=== PATIENT | male | born 1945 | race Caucasian/White ===

== ENCOUNTER → 2024-02-04 15:44 | Outpatient (REF) | payer OTHER, SELFPAY | LOC: HWRAD 15:44 | PROVIDERS: ATTENDING PHYSICIAN Nurse Practitioner Family | DX: S42.002K Fracture of unspecified part of left clavicle, subsequent encounter for fracture with nonunion (principal); S22.32XK Fracture of one rib, left side, subsequent encounter for fracture with nonunion; J93.9 Pneumothorax, unspecified | CPT/HCPCS: 71046 ==

== ENCOUNTER 2024-03-01 11:05 | Emergency (ER) | payer BC, MEDICARE, SELFPAY ==
[2024-03-01 11:13] VITALS: BP 120/68
[2024-03-01 11:35] VITALS: BMI 23.7
[2024-03-01 11:41] VITALS: BP 119/62
[2024-03-01 12:00] VITALS: BP 99/88
[2024-03-01 12:00] LABS: % Basophils 0.5 % (0-2); % Eosinophils 0.6 % (0-6); % Immature Granulocytes 0.5 % (0-0.5); % Lymphocytes 8.1 % (20.5-51.1); % Monocytes 7.1 % (1.7-9.3); % Neutrophils 83.2 % (42.2-75.2); Absolute Lymphocytes 0.5 10^3/uL (1.2-3.4); Absolute Monocytes 0.5 10^3/uL (0.1-0.6); Absolute Neutrophils 5.3 10^3/uL (1.4-6.5); Hematocrit 41.2 % (39.0-52.0); Hemoglobin 14.1 g/dL (13.0-18.0); Mean Corp Hgb Conc. 34.2 g/dL (33.0-37.0); Mean Corpuscular Hgb 29.9 pg (27.0-31.0); Mean Corpuscular Volume 87.3 fL (80.0-94.0); Mean Platelet Volume 9.9 fL (7.4-10.4); Nucleated Red Blood Cells % 0 % (-); Platelet Count 156 10^3/uL (130-400); Red Blood Cell Count 4.72 10^6/uL (4.70-6.10); Red Cell Dist. Width 13.8 % (11.5-14.5); White Blood Cell Count 6.3 10^3/uL (4.8-10.8)
[2024-03-01 12:15] LABS: ALT (SGPT) 20 U/L (0-50); AST (SGOT) 23 U/L (17-59); Albumin 4.2 g/dl (3.5-5.0); Alkaline Phosphatase 89 U/L (38-126); Blood Urea Nitrogen 20 mg/dl (9-20); Calcium 9.5 mg/dl (8.4-10.2); Carbon Dioxide 30 mmol/L (22-30); Chloride 102 mmol/L (98-107); Estimated Creatinine Clearance 48 ml/min; Glucose 181 mg/dl (70-99); Potassium 4.6 mmol/L (3.5-5.1); Sodium 139 mmol/L (135-145); Total Bilirubin 0.8 mg/dl (0.2-1.3); Total Protein 6.5 g/dl (6.3-8.2); eGFR > 60.00
[2024-03-01 12:24] LABS: Troponin I < 0.012 ng/ml
[2024-03-01 13:26] VITALS: BP 96/61
[2024-03-01 14:00] VITALS: BP 98/71
--- NOTE | 2024-03-01 14:25 | EDRN ---
Randy Suero PA in room speaking w/ pt and spouse at this time.
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
[2024-03-01 15:00] VITALS: BP 101/82
--- NOTE | 2024-03-01 15:20 | EDRN ---
Pt OOB and ambulated to BR and back w/ cane at this time.
== END 2024-03-01 15:25 | disposition home or self-care (01) ==
LOC: EMR 11:05
PROVIDERS: Physician Assistant; EMERGENCY PHYSICIAN Emergency Medicine; FAMILY PHYSICIAN Nurse Practitioner Family
DX: R42 Dizziness and giddiness (principal); R61 Generalized hyperhidrosis; E78.00 Pure hypercholesterolemia, unspecified
CPT/HCPCS: 99283; 71046; 80053; 84484; 85025; 93005

== ENCOUNTER → 2024-03-18 06:39 | Day surgery (SDC) | payer MEDICARE, BC, SELFPAY ==
[2024-03-18 09:35] LABS: Glucose - Point of Care 92 mg/dl (70-99)
== END ==
LOC: GI 06:39
PROVIDERS: ATTENDING PHYSICIAN Internal Medicine Gastroenterology
DX: K44.9 Diaphragmatic hernia without obstruction or gangrene (principal); R11.2 Nausea with vomiting, unspecified; K31.9 Disease of stomach and duodenum, unspecified
CPT/HCPCS: 43239; 88305; 82962; 88341; 88342; 88365

== ENCOUNTER 2024-04-29 13:40 | Outpatient (RCR) | payer MEDICARE, BC, SELFPAY | END 2024-04-29 23:59 | disposition home or self-care (01) | LOC: ROT 13:40 | PROVIDERS: ATTENDING PHYSICIAN Nurse Practitioner Adult Health; FAMILY PHYSICIAN Nurse Practitioner Family | DX: R41.3 Other amnesia (principal); Z73.6 Limitation of activities due to disability; R41.89 Other symptoms and signs involving cognitive functions and awareness; R41.840 Attention and concentration deficit | CPT/HCPCS: 96125; 97129; 97130; 97167; 97530; 97535 ==

== ENCOUNTER 2024-06-02 12:53 | Outpatient (RCR) | payer MEDICARE, BC, SELFPAY | END 2024-06-02 23:59 | disposition home or self-care (01) | LOC: ROT 12:53 | PROVIDERS: ATTENDING PHYSICIAN Nurse Practitioner Adult Health; FAMILY PHYSICIAN Nurse Practitioner Family | DX: R41.3 Other amnesia (principal); Z73.6 Limitation of activities due to disability | CPT/HCPCS: 97129; 97130; 97530; 97535; 97550 ==

== ENCOUNTER 2024-06-21 15:10 | Outpatient (RCR) | payer MEDICARE, BC, SELFPAY | END 2024-06-21 23:59 | disposition home or self-care (01) | LOC: ROT 15:10 | PROVIDERS: ATTENDING PHYSICIAN Nurse Practitioner Adult Health; FAMILY PHYSICIAN Nurse Practitioner Family | DX: R41.3 Other amnesia (principal); Z73.6 Limitation of activities due to disability | CPT/HCPCS: 97129; 97130; 97530; 97535 ==

== ENCOUNTER 2024-08-05 05:55 | Day surgery (SDC) | payer MEDICARE, BC, SELFPAY ==
[2024-08-05] VITALS (7 sets, daily range): BP systolic 125–170; BP diastolic 63–95; BMI 22.8
[2024-08-05 06:23] LABS: Glucose - Point of Care 112 mg/dl (70-99)
[2024-08-05] MEDS: TYLENOL 1000 MG PO (06:30)
[2024-08-05] MEDS: NORMOSOL-R/PLASMALYTE-A 1000 IV (06:30)
--- NOTE | 2024-08-05 07:02 | W.SUR.PREOP ---
Pre-Operative Surgical Note
-
I have examined this patient prior to the performance of the scheduled procedure.
The patient's condition is unchanged from the time of the current History and
Physical and the patient is able to undergo the scheduled procedure.
--- NOTE | 2024-08-05 07:02 | HP.FOC2 ---
Focused History & Physical
Chief Complaint
HPI:
Chief Complaint: Right inguinal hernia
HPI / Indication for Planned Procedure:
Open right inguinal hernia repair with mesh
Relevant Past Medical History: Negative
Relevant Social History: Negative
Relevant Family History: Negative
Relevant Past Surgical History: Negative
Review of Systems
Review of Pertinent Systems: All Systems Negative
Medication
See Medication form for detailed medications: Yes
Medication List (including Herbals & OTC):
atorvastatin 10 mg tablet (Lipitor) 10 mg PO DAILY 10/14/21
mirabegron 25 mg tablet,extended release 24 hr (Myrbetriq) 25 mg PO DAILY 10/14/21
sitagliptin phosphate 100 mg tablet (Januvia) 100 mg PO DAILY 10/14/21
tamsulosin 0.4 mg capsule (Flomax) 0.4 mg PO HS 10/14/21
donepezil 23 mg tablet 23 mg PO HS 07/22/24
gejculhq-ozl-cwhvb 150 mcg-vit K1 30 mcg-lycop 300 mcg-lutein tablet (Centrum Minis Men 50 Plus) 1 tab PO DAILY 07/22/24
famotidine 20 mg tablet (Pepcid) 20 mg PO HS 08/05/24
Medications Reviewed: Yes
Allergies and Reactions
Patient has Allergies: Yes
Noted Allergies and Reactions:
Allergy/AdvReac Type Severity Reaction Status Date / Time
tramadol Allergy VOMITING, Verified 08/05/24 06:26
SWEATING
Pertinent Physical Exam
All Other Systems: Negative
Head/Neck: Normal
Diagnosis / Assessment
Right inguinal hernia
Plan / Procedure
Open right inguinal hernia repair with mesh
Anesthesia/Sedation to be done by Anesthesia Provider: Yes
--- NOTE | 2024-08-05 08:24 | W.IMMPOSTOP ---
Surgical Immed Post Op Note
-
Primary Surgeon: Nabor Lovell MD
Assisting Surgeon: None
Pre-op Diagnosis: Right inguinal hernia
Post-op Diagnosis: Same
Procedure Performed:
1. Open right inguinal hernia repair with mesh
2. Right inguinal neurectomy
Anesthesia Type: General
Specimen / Cultures:
1. Cord lipoma
2. Right inguinal nerve (trifurcated ilioinguinal nerve)
Estimated Blood Loss: 3 cc
Complications: None
Operative Findings: Indirect inguinal hernia with a fairly large cord lipoma that was resected. Hernia sac opened and confirmed to have no contents. High ligation performed. No direct or femoral component palpated. Floor reinforced with a Bard
soft 7 x 15 centimeter uncoated polypropylene mesh cut to size.
--- NOTE | 2024-08-05 08:27 | OR.RPT ---
Operative Report
Operative Report
Patient Name: Mukund Powers
: 1945
Date of Operation: 08/05/2024
Preoperative Diagnosis: Reducible Inguinal hernia, right
Postoperative Diagnosis: Same
Procedure Performed:
1. Open right inguinal hernia repair with mesh
2. Right inguinal neurectomy
Surgeon(s):
Dr. Lovell
Parking Lot Signaler(s):
DEBBIE Wiley
Anesthesia Type: MAC
Estimated Blood Loss: 3 cc
Urine Output: None
Drains/Lines/Implants: 3 x 6 inch Bard soft mesh cut to size
Specimen / Cultures:
1. Cord lipoma
2. Right inguinal nerve (trifurcated ilioinguinal nerve)
Indication for surgery: The patient has a history of groin pain and some asymmetry noted on exam and was found to have a right inguinal Hernia. Following review of therapeutic options they has elected to undergo an open repair
Operative Findings: Indirect inguinal hernia with a fairly large cord lipoma that was resected. Hernia sac opened and confirmed to have no contents. High ligation performed. No direct or femoral component palpated. Floor reinforced with a Bard
soft 7 x 15 centimeter uncoated polypropylene mesh cut to size.
Details of the operation:
After induction of anesthesia, the patient was clipped, prepped and draped in the supine position. A team timeout was performed confirming administration of DVT prophylaxis, IV antibiotics and SCDs. The ASIS and pubic tubercle were marked and an
incision was chosen along the course of a skin line. The skin was anesthestized with Lidocaine. An incision was made through the skin line and dissection carried down through subcutaneous tissue and Courtney's fascia. The superficial epigastric vein
was identified and ligated. A Small Antwon wound retractor was used to provide exposure. The external oblique fibers were then divided in the direction of travel. The ilioinguinal nerve was identified and preserved. Dissection was carried down to
the floor, which revealed the following:
At the site of the indirect (internal) ring, there was a moderate size protrusion of preperitoneal fat, the hernia sac was identified, dissected and reduced off the cord structures. After confirming no intra-abdominal contents, a high ligation was
performed.
A cord lipoma was also identified and resected.
The direct space, floor of the canal revealed no weakness. No femoral weakness could be palpated through an opening in the indirect sac.
The floor of the canal was then reconstructed by placing a 7 x 15 cm Bard soft uncoated polypropylene mesh trimmed to size and secured it in place with interrupted 0-PDS sutures medially at the pubic tubercle, inferiorly along the inguinal ligament,
laterally/superiorly in the conjoint tendon. A slit was made in the mesh just wide enough to accommodate the cord this was also reapproximated with the PDS suture. Care was taken not to injure or entrap any nerves. The external oblique fibers were
then closed using a running 2-0 Vicryl suture. Courtney's fascia was then closed with interrupted 3-0 Vicryl suture. The skin was closed in layers with interrupted 3-0 vicryl deep dermals followed by a running subcuticular 4-0 Monocryl followed by
dermabond. The patient returned to the Recovery Room in stable condition. Sponge and instrument counts were correct. No specimens sent to Pathology.
I was the attending physician and performed the procedure with assistance of the PA above. The assistance of DEBBIE Wiley was required due to the complexity of the procedure. During the procedure Diaen assisted with retraction, resection, and
closure of the wound. I was present for all portions of the case, excluding skin closure.
Nabor Lovell MD
[2024-08-05 08:35] LABS: Glucose - Point of Care 137 mg/dl (70-99)
== END 2024-08-05 09:55 | disposition home or self-care (01) ==
LOC: SDS 05:55
PROVIDERS: ATTENDING PHYSICIAN Surgery; FAMILY PHYSICIAN Nurse Practitioner Family
DX: K40.90 Unilateral inguinal hernia, without obstruction or gangrene, not specified as recurrent (principal)
CPT/HCPCS: 49505; 88304; 88305; 82962; C1894

== ENCOUNTER → 2024-11-26 15:40 | Outpatient (REF) | payer MEDICARE, OTHER, SELFPAY | LOC: HWRCS 15:40 | PROVIDERS: ATTENDING PHYSICIAN Internal Medicine Cardiovascular Disease; FAMILY PHYSICIAN Nurse Practitioner Family | DX: R42 Dizziness and giddiness (principal); R07.89 Other chest pain; V89.2XXA Person injured in unspecified motor-vehicle accident, traffic, initial encounter | CPT/HCPCS: 93306 ==

== ENCOUNTER → 2025-01-14 11:02 | Outpatient (REF) | payer MEDICARE, OTHER, SELFPAY | LOC: PAVMRI 11:02 | PROVIDERS: ATTENDING PHYSICIAN Specialist; FAMILY PHYSICIAN Nurse Practitioner Family | DX: M54.50 Low back pain, unspecified (principal); M25.551 Pain in right hip | CPT/HCPCS: 72148; 73721 ==

== ENCOUNTER → 2025-03-18 08:12 | Outpatient (REF) | payer MEDICARE, OTHER, SELFPAY | LOC: HWRAD 08:12 | PROVIDERS: ATTENDING PHYSICIAN Nurse Practitioner Family | DX: I71.40 Abdominal aortic aneurysm, without rupture, unspecified (principal) | CPT/HCPCS: 76770 ==

== ENCOUNTER 2025-04-11 19:25 | Observation (INO) | payer MEDICARE, OTHER, SELFPAY ==
[2025-04-11] VITALS (10 sets, daily range): BP systolic 134–190; BP diastolic 71–89; BMI 25.8
--- NOTE | 2025-04-11 11:15 | ED.MUSCINJ ---
HPI-Injury
General
Chief Complaint: Fall
Source: patient
Exam Limitations: none
Time Seen by Provider: 04/11/25 11:03
History of Present Illness-Injury
Initial Injury comments:
80-year-old male not anticoagulated presents with who he lives with at home after a fall. She notes he has been falling frequently over the past week. He gets episodes of dizziness and sweatiness. Today he fell backwards while putting his
pants on hitting the upper back and neck on the edge of a nightstand. No loss of conscious. He notes diffuse back pain and headache as well as neck pain. also notes he has been complaining of abdominal discomfort. He has been moving his
bowels and urinating normally. No hematuria since the fall. No recent fevers. No other complaints.
Past History
Past History
ED Past Medical History: Cancer (Prostate) and Hypercholesterolemia
Social History
Tobacco: Non-smoker
Phy Exam
Physical Exam
Physical Exam:
General: Well-appearing male no acute distress
HEENT: NC/AT
Heart: Regular but bradycardic
Lungs: Clear no wheeze
Musculoskeletal exam: Diffuse tenderness about the lumbar thoracic and cervical spine. No obvious deformities. Good range of motion all extremities
Abdomen is soft no guarding or rebound
Neurologic exam: Alert oriented good strength and sensation to the upper and lower extremities
Skin is warm no rash
Injury Course
Orders/Labs/Results
Orders:
Orders
04/11/25 10:26
Electrocardiogram (*1) Urgent
Reason for Study: Bradycardia / Tachycardia
EKG- Treatment ONCE
04/11/25 10:36
Complete Blood Count/With Diff Urgent
Comprehensive Metabolic Panel Urgent
Lipase Urgent
04/11/25 11:11
CT Cervical Spine W/o Iv Contr Urgent
Comment:
Reason For Exam: fall
CT Head W/o Iv Contrast Urgent
Comment:
Reason For Exam: fall
CR Lumbar Spine 2 Or 3 Views Urgent
Comment:
Reason For Exam: fall
CR Thoracic Spine 3 Views Urgent
Comment:
Reason For Exam: fall
04/11/25 13:47
CT Abd/pelvis W Iv Cont Urgent
Comment:
Reason For Exam: abdominal pain
04/11/25 13:54
Urinalysis Reflex To Culture Urgent
Date Specimen was Collected: 04/11/25
Time Specimen was Collected: 11:24
Urine Microscopic Reflex Cult Urgent
04/11/25 18:10
NSS 1000mL Bolus over 1 hr 0.9% Sodium Chloride 1000 ml [Nss] 1,000 ml IV BOLUS
Abnormal Lab Results
04/11/25 04/11/25
10:36 13:54
RBC 4.67 L 10^6/uL
(4.70-6.10)
MPV 10.5 H fL
(7.4-10.4)
Absolute Lymphs (auto) 1.0 L 10^3/uL
(1.2-3.4)
Lymphocytes % 18.7 L %
(20.5-51.1)
Monocytes % 10.8 H %
(1.7-9.3)
Carbon Dioxide 31 H mmol/L
(22-30)
BUN 23 H mg/dl
(9-20)
Glucose 111 H mg/dl
(70-99)
Lipase 835 H U/L
(23-300)
Urine Bacteria (Reflex) Few A
(Negative)
Urine Albumin (Reflex) 1+ A
(Neg - Trace)
04/11/25 10:36
04/11/25 10:36
MDM/Problems Addressed
Differential Diagnosis Includes:
Patient with fall. He has had falls in the past week. describes a dizziness. Patient is slightly a poor historian. CT of head and cervical spine pending will x-ray the thoracic and lumbar spine. Urinalysis and labs pending otherwise
*Pulse Oximetry
SaO2: 97
Oxygen Mode of Delivery: Room air
Patient hypoxic: no
*Critical Care Note
Total Time (30-74mins, 75-104mins- exclusive of procedures): Not Applicable
Update Note
Update Note:
EKG shows sinus bradycardia with a rate of 45. This is not new'
Lipase is elevated. CT of the abdomen was performed as well which is negative for acute finding. Patient here with frequent falls and weakness. Possible pancreatitis. He does describe abdominal pain is tender on exam. Fluids ordered. Will
admit to hospital
ED Attending Note
-
Portions of this chart may have been created with voice recognition software.� Occasional wrong word or��sound alike� substitutions may have occurred due to the inherent limitations of voice recognition software.
Discharge Plan
Departure
Patient Disposition: Admit
Date of Disposition: 04/11/25
Time of Disposition: 18:11
Presentation/result/management discussed w/ accepting MD/DO: Hospitalist
Discharge Problem:
Falls, Abdominal pain
Prescriptions:
No Action
atorvastatin [Lipitor] 10 MG tablet
10 mg PO DAILY
tamsulosin [Flomax] 0.4 MG capsule
0.4 mg PO HS
Januvia 100 MG tablet
100 mg PO DAILY
mirabegron [Myrbetriq] 25 MG tablet extended release 24 hr
25 mg PO DAILY
donepezil 23 mg Tablet
23 mg PO HS
Centrum Minis Men 50 Plus [id number] mcg Tablet
1 tab PO DAILY
famotidine [Pepcid] 20 mg Tablet
20 mg PO HS
acetaminophen 325 mg tablet
650 mg PO Q6HPRN PRN (Reason: mild pain) Qty: 14 0RF
ibuprofen 600 mg tablet
600 mg PO Q6H PRN (Reason: pain) Qty: 14 0RF
Referrals:
Minor Lu CRNP [Family Provider, Family Practice]
Interventions
Interventions:
*Risk Screen - Suicide Last Done: 04/11/25 10:21
*General Assessment Last Done: 04/11/25 10:21
*Neglect/Abuse Screening Last Done: 04/11/25 10:21
*ED- Fall Risk Assessment Last Done: 04/11/25 11:16
*ED COVID-19 Vaccine History Last Done: 04/11/25 11:16
ED-Musculoskeletal Assessment Last Done: 04/11/25 10:33
ED- Neurological Assessment Last Done: 04/11/25 10:33
ED-Skin Assessment Last Done: 04/11/25 10:33
Discharge Date and Time
Print Language: TAIWANESE
[2025-04-11 11:39] LABS: Hematocrit 41.9 % (39.0-52.0); Hemoglobin 14.3 g/dL (13.0-18.0); Mean Corp Hgb Conc. 34.1 g/dL (33.0-37.0); Mean Corpuscular Volume 89.7 fL (80.0-94.0); Nucleated Red Blood Cells % 0 % (-); Platelet Count 145 10^3/uL (130-400); Red Cell Dist. Width 13.8 % (11.5-14.5)
[2025-04-11 11:44] LABS: ALT (SGPT) 25 U/L (0-50); AST (SGOT) 23 U/L (17-59); Albumin 4.4 g/dl (3.5-5.0); Alkaline Phosphatase 72 U/L (38-126); Blood Urea Nitrogen 23 mg/dl (9-20); Calcium 9.2 mg/dl (8.4-10.2); Carbon Dioxide 31 mmol/L (22-30); Chloride 104 mmol/L (98-107); Glucose 111 mg/dl (70-99); Lipase 835 U/L (23-300); Potassium 4.4 mmol/L (3.5-5.1); Sodium 140 mmol/L (135-145); Total Protein 7.0 g/dl (6.3-8.2); eGFR > 60.00
[2025-04-11 14:16] LABS: Urine Character Cloudy (Clear)
[2025-04-11 14:36] LABS: Urine Red Blood Cell 0-2 /HPF (0-2); Urine White Cell 0-2 /HPF (0-5)
--- NOTE | 2025-04-11 18:13 | HPS.HSE ---
Addendum entered and electronically signed by Elia Gomez DO 04/11/25 20:55:
Patient seen and examined independently. Agree with findings and plan as set forth by Jeimy Cabrera PA-C.
Patient is an 80y M with PMH significant for DM-II, prostate cancer and dementia who presents to ED for evaluation after multiple falls. History obtained from patient and his at the bedside. Patient has apparently fallen 3 times in the
past week. He fell backwards today while putting on his clothes. He landed on his back side and struck the back of his neck / head on the floor. It is not clear whether or not there was any LOC / syncope. states that patient frequently
complains of abdominal discomfort after his falls. He states that he has had significant difficulty moving his bowels and notes that he occasionally manually disimpacts himself.
At the time of my examination, patient is awake and alert and in no distress.
Ass:
Ambulatory Dysfunction / Frequent Falls
Bradycardia / Vasovagal
Chronic Constipation
Senile Dementia
Abnormal Lipase
DM-II
History of Prostate Cancer
Plan:
Observe overnight for further evaluation and treatment.
Hold Aricept which can cause bradycardia.
Hold tamsulosin which can cause orthostatic hypotension
Hold Myrbetriq.
Imaging in the ED negative for any acute injury, fracture, etc.
PT / OT evaluations.
Bowel regimen.
Follow for clinical improvement / effect.
Original Note:
Family Physician
-
Family Physician: SOHA Reddy
Chief Complaint
-
Falls and Abdominal Pain
History of Present Illness
Patient is an 80 y/o male past medical history of diabetes mellitus, hyperlipidemia, dementia, GERD and prostate cancer who presents with falls and abdominal pain. Patient is a poor historian, some additional information provided by patient's
at the bedside. Patient has experienced three falls in the past week. Today he fell backwards while trying to put on his shorts hitting his back and neck. ED note indicates patient noted episodes of dizziness, but was unable to confirm this
history with me. notes he frequently complains of abdominal pain with these events. Patient reports increased belching recent. He reports moving his bowel daily, but notes stool is hard requiring straining and sometime manual disimpaction in
order to pass the stool.
Medical History
Past Medical History
Past Medical History: Reports Other
Additional Past Medical History:
Diabetes Mellitus, Type II
Hyperlipidemia
Dementia
GERD
Prostate Cancer
Past Surgical History: Reports Other
Additional Past Surgical History:
Open Right Inguinal Hernia Repair with Mesh
Left Thumb / Middle Finger Surgery
Tonsillectomy
Social History
Tobacco: Smoker (Quit in 1999)
Alcohol: None
Personal:
Living: With Family
Family History
Family History: Not pertinent
Allergies / Home Medications
Allergies reflects when Allergies were last updated in Table8.
Home Medications with original date entered in Table8
Allergy/Medication List:
Allergies
Allergy/AdvReac Type Severity Reaction Status Date / Time
tramadol Allergy VOMITING, Verified 04/11/25 10:20
SWEATING
Home Medications
atorvastatin 10 mg tablet (Lipitor) 10 mg PO QPM 10/14/21
sitagliptin phosphate 100 mg tablet (Januvia) 100 mg PO DAILY 10/14/21
tamsulosin 0.4 mg capsule (Flomax) 0.4 mg PO HS 10/14/21
donepezil 23 mg tablet 23 mg PO HS 07/22/24
acetaminophen 325 mg tablet 650 mg (2 x 325 mg) PO Q6HPRN PRN mild pain #14 tabs 08/05/24
famotidine 20 mg tablet (Pepcid) 20 mg PO HS 08/05/24
citalopram 20 mg tablet (Celexa) 20 mg PO DAILY 04/11/25
memantine 10 mg tablet 10 mg PO BID 04/11/25
mirabegron 50 mg tablet,extended release 24 hr (Myrbetriq) 50 mg PO DAILY 04/11/25
Review of Systems
-
A 12 point ROS was completed and negative except as noted: Yes
Constitutional: Denies Fever or Chills
Respiratory: Denies Cough or Trouble Breathing
Cardiac: Denies Chest Pain or Palpitations
Abdomen/GI: Reports See HPI
Physical Exam
Vital Signs
Vital Signs
Temp Pulse Resp BP Pulse Ox
98.2 F 52 18 180/79 97
04/11/25 10:21 04/11/25 18:01 04/11/25 18:01 04/11/25 16:00 04/11/25 18:01
Physical Exam
General: Comfortable and Conversant
HEENT: Anicteric and Moist mucous membranes
Respiratory: Clear and Non Labored Respirations
Cardiac: S1/S2, Regular Rhythm and Bradycardia (Slightly)
GI: Soft, Tender (Suprapubic Region) and Other (Slightly hyperactive bowel sounds)
Rectal: Deferred by Provider
Musculoskeletal: No Clubbing, No Cyanosis and No Edema
Skin: Warm and Dry
Neuro: Awake, Alert and Nonfocal/grossly intact
Psych: Calm
Laboratory Results
-
04/11/25 10:36
04/11/25 10:36
Laboratory Results
Total Bilirubin 0.7 mg/dl (0.2-1.3) 04/11/25 10:36
AST 23 U/L (17-59) 04/11/25 10:36
ALT 25 U/L (0-50) 04/11/25 10:36
Alkaline Phosphatase 72 U/L (38-126) 04/11/25 10:36
Lipase 835 U/L (23-300) H 04/11/25 10:[address]:
No acute intracranial abnormality.
Cervical Spine CT:
No acute fracture or malalignment. Multilevel degenerative changes as described.
Thoracic / Lumbar Spine X-Ray:
No acute fracture or malalignment identified. Multilevel overall moderate degenerative changes
Abd/Pelvis CT:
Large, stable right renal cyst.
No acute posttraumatic abnormality of the organs of the abdomen and true pelvis.
Cholelithiasis.
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
Stable tiny right middle lobe and left lower lobe pulmonary nodules, likely benign.
Data Reviewed
-
CT Scan: Report Reviewed by me
Lab Data: Labs Reviewed by me
Impression/Plan
-
Frequent Falls, possibly related to orthostasis vs vasovagal syncope
-Check orthostatic vital signs
-Consult PT/OT
Chemical Pancreatitis
-Hold Januvia
-Allow clear liquids
-Continue IVFs
Constipation
-Start MiraLAX
Diabetes Mellitus, Type II
-Hold Januvia
-Monitor sugars and continue coverage insulin
Hyperlipidemia
-Continue atorvastatin
Dementia
-Hold donepezil due to bradycardia
-Continue memantine
-Continue Celexa
Hx Prostate Cancer
-Hold Flomax pending orthostatic VS
-Hold mirabegron
DVT proph: Lovenox
Code Status: Full Code
[2025-04-11] MEDS: NSS 1000 IV ×2 (19:04→21:55)
[2025-04-11 21:38] LABS: Glucose - Point of Care 97 mg/dl (70-99)
[2025-04-11] MEDS: NAMENDA 10 MG PO (21:54)
[2025-04-11] MEDS: PEPCID 20 MG PO (21:54)
[2025-04-12] VITALS (7 sets, daily range): BP systolic 131–171; BP diastolic 67–83; PULSE 47–57; O2SAT 97
--- NOTE | 2025-04-12 05:50 | TRANSFER ---
Pt transferred to 3W from ED. Pulled over from stretcher to hospital bed. Pt disoriented to time and place. Spouse at bedside to answer admission questions. Pt and spouse oriented to room, call steinberg within reach, plan of care ongoing.
[2025-04-12 06:33] LABS: Hematocrit 41.7 % (39.0-52.0); Hemoglobin 14.1 g/dL (13.0-18.0); Mean Corp Hgb Conc. 33.8 g/dL (33.0-37.0); Mean Corpuscular Volume 87.2 fL (80.0-94.0); Platelet Count 142 10^3/uL (130-400); Red Cell Dist. Width 13.5 % (11.5-14.5)
[2025-04-12 06:42] LABS: Blood Urea Nitrogen 15 mg/dl (9-20); Calcium 8.8 mg/dl (8.4-10.2); Carbon Dioxide 26 mmol/L (22-30); Chloride 105 mmol/L (98-107); Estimated Creatinine Clearance 57 ml/min; Glucose 94 mg/dl (70-99); Magnesium 2.0 mg/dl (1.6-2.3); Potassium 4.4 mmol/L (3.5-5.1); Sodium 137 mmol/L (135-145); eGFR > 60.00
[2025-04-12 07:53] LABS: Glucose - Point of Care 94 mg/dl (70-99)
[2025-04-12] MEDS: NOVOLOG FLEXPEN-LOW RESISTANCE SC ×2 (08:00→16:32)
[2025-04-12] MEDS: MIRALAX 17 GRAMS PO (08:48)
[2025-04-12] MEDS: NAMENDA 10 MG PO ×2 (08:49→20:44)
[2025-04-12] MEDS: TYLENOL 650 MG PO (08:49)
[2025-04-12] MEDS: CELEXA 20 MG PO (08:49)
[2025-04-12 10:37] LABS: Glycohemoglobin (HgbA1c) 6.0 % (4.0-5.6)
--- NOTE | 2025-04-12 11:10 | CM ---
CM met with patient to complete IA.
Pt reports living with his in a ranch style home with 2 entry steps. Pt advised (I) with amb and adls, drives.
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
CM called pt's to confirm accuracy of pt's statements; pt does not drive, is never left alone. He has a history of vascular dementia and TBI.
CM offered a list of caregivers to assist pt's with getting out of the house, however she advised that pt would not be agreeable to caregiver services.
Plan: Pt will return home with at discharge. Home Health was recommended, however per , she does not feel he will be agreeable; will discuss with patient and prior to discharge.
[2025-04-12 11:42] LABS: Glucose - Point of Care 160 mg/dl (70-99)
--- NOTE | 2025-04-12 11:52 | W.PN.HOSP.TC ---
Today's Communication/Plan
-
Advance diet
Monitor heart rate
Check TSH and cortisol
Monitor on telemetry
Assessment / Plan
Assessment / Plan
Frequent Falls, possibly related to orthostasis likely secondary to autonomic dysfunction
-Check orthostatic vital signs found to be positive during physical therapy evaluation.
- PT/OT Home VN
Chemical Pancreatitis
- Hold Januvia
- No abdominal pain. Advance diet.
- Monitor off fluids.
Constipation
-Start MiraLAX
Diabetes Mellitus, Type II
-Hold Januvia
-Monitor sugars and continue coverage insulin
Hyperlipidemia
-Continue atorvastatin
Dementia
Sinus bradycardia
-Hold donepezil due to bradycardia
-Continue memantine
-Continue Celexa
-Telemetry noted with bradycardia. No sinus pauses noted. Check TSH and cortisol
Hx Prostate Cancer
- Hold Flomax for today. Recheck orthostatics in the morning. Encourage increased p.o. intake.
-restart mirabegron on dc as NF.
DVT proph: Lovenox
Code Status: Full Code
d/w with spouse at bedside in details
PT/OT
Anticipated Discharge: Within 24 hours
Subjective/Interval History
-
Date of Service: April 12, 2025
Had episode of fall yesterday
Denies any lightheaded dizziness or palpitation prior to the fall
Objective Data
-
Labs:
Laboratory Results
04/12/25
05:05
WBC 5.3
Hgb 14.1
Hct 41.7
Plt Count 142
Sodium 137
Potassium 4.4
Chloride 105
Carbon Dioxide 26
BUN 15
Creatinine 0.9
Glucose 94
Calcium 8.8
Vital Signs:
Vital Signs
Temp Pulse Resp BP Pulse Ox
97.7 F 47 14 163/80 98
04/12/25 11:02 04/12/25 11:02 04/12/25 11:02 04/12/25 11:02 04/12/25 11:02
I&O
04/11/25 04/12/25 04/13/25
06:59 06:59 06:59
Intake Total 480 / 480
Output Total 325 / 325
Balance 155 / 155
Physical Exam
-
General: Well Developed and No Apparent Distress
HEENT: Normocephalic, Atraumatic and Moist Mucous Membranes
Respiratory: Clear to Auscultation
Cardiac: Regular Rhythm, S1/S2 and Bradycardic; Negative Murmur, Rub or Gallop
GI: Soft, Nontender, Nondistended and Normal Bowel Sounds; Negative Organomegaly
Rectal: Deferred by Provider
Musculoskeletal: No Clubbing, No Cyanosis and No Edema
Skin: Negative Rash
Neuro: Awake, No Motor Deficits and Nonfocal/Grossly Intact
Psych: Calm and Apparent Dementia
Data Reviewed
-
Total Time Spent with Patient (in minutes): 55
[2025-04-12] MEDS: NOVOLOG FLEXPEN-LOW RESISTANCE 1 UNITS SC (13:45)
[2025-04-12 16:00] LABS: Cortisol, Random 9.8 ug/dl
[2025-04-12 16:30] LABS: Glucose - Point of Care 126 mg/dl (70-99)
[2025-04-12] MEDS: LIPITOR 10 MG PO (17:44)
[2025-04-12] MEDS: LOVENOX 40 MG SC (17:45)
[2025-04-12 21:43] LABS: Glucose - Point of Care 152 mg/dl (70-99)
[2025-04-13] VITALS (7 sets, daily range): BP systolic 113–163; BP diastolic 63–91; PULSE 50–59
[2025-04-13] MEDS: PEPCID PO (00:09)
[2025-04-13] MEDS: PEPCID 20 MG PO (00:44)
[2025-04-13] MEDS: TYLENOL 650 MG PO (00:44)
[2025-04-13 06:19] LABS: ALT (SGPT) 21 U/L (0-50); AST (SGOT) 22 U/L (17-59); Albumin 4.1 g/dl (3.5-5.0); Alkaline Phosphatase 75 U/L (38-126); Blood Urea Nitrogen 16 mg/dl (9-20); Calcium 9.0 mg/dl (8.4-10.2); Carbon Dioxide 28 mmol/L (22-30); Chloride 105 mmol/L (98-107); Estimated Creatinine Clearance 51 ml/min; Glucose 99 mg/dl (70-99); Lipase 171 U/L (23-300); Potassium 4.3 mmol/L (3.5-5.1); Sodium 139 mmol/L (135-145); Total Protein 6.3 g/dl (6.3-8.2); eGFR > 60.00
[2025-04-13 08:12] LABS: Glucose - Point of Care 98 mg/dl (70-99)
[2025-04-13] MEDS: NOVOLOG FLEXPEN-LOW RESISTANCE SC ×2 (08:27→12:01)
[2025-04-13] MEDS: NAMENDA 10 MG PO (08:28)
[2025-04-13] MEDS: MIRALAX 17 GRAMS PO (08:28)
[2025-04-13] MEDS: CELEXA 20 MG PO (08:28)
--- NOTE | 2025-04-13 10:51 | PTCARENOTE ---
Orthostatic VS obtained w/ Dr Bender at bedside. Pt denies feeling lightheaded or dizzy. + tilt, see documentation. Gadiel knee high TEDDana and ab mckeon applied and Education provided to pt and .
--- NOTE | 2025-04-13 11:22 | W.PN.HOSP.TC ---
Today's Communication/Plan
-
compression stocking/abd binder
dc donepezil
Assessment / Plan
Assessment / Plan
Frequent Falls, possibly related to orthostasis likely secondary to autonomic dysfunction
- Positive orthostatics however asymptomatic. Recommended compression stocking and abdominal binder. Also recommended to use assistive device for walking.
- PT/OT Home VN. During supine patient blood pressure high in 160s. Can do trial of midodrine if needed in the future.
Chemical Pancreatitis
- Hold Januvia and restart on discharge
- No abdominal pain. Advance diet.
- Monitor off fluids.
Constipation
-Start MiraLAX
Diabetes Mellitus, Type II
-Hold Januvia
-Monitor sugars and continue coverage insulin
Hyperlipidemia
-Continue atorvastatin
Dementia likely possibility of side effect from donepezil
Sinus bradycardia
-Recommend to discontinue donepezil due to bradycardia
-Continue memantine
-Continue Celexa
-Telemetry noted with bradycardia. No sinus pauses noted. TSH and cortisol normal. Remains asymptomatic.
Hx Prostate Cancer
- Patient on Flomax for prolonged period of time. Can continue with it.
-restart mirabegron on dc as NF.
DVT proph: Lovenox
Code Status: Full Code
d/w with spouse at bedside in details
PT/OT Home VN.
More than 30 minutes spent in discharge including
Final examination of the patient
Summarizing hospital stay
Instructions for continuing care to all relevant caregivers
Preparation of discharge records, prescriptions, and referral forms
Total time spent (in minutes): 52
Anticipated Discharge: Today
Subjective/Interval History
-
Date of Service: April 13, 2025
Patient was ambulating in the room to the bathroom without any difficulty.
Denies any lightheadedness or dizziness. Patient remains talkative. Remains in good spirits.
Objective Data
-
Labs:
Laboratory Results
04/13/25
05:07
Sodium 139
Potassium 4.3
Chloride 105
Carbon Dioxide 28
BUN 16
Creatinine 1.0
Glucose 99
Calcium 9.0
Total Bilirubin 0.9
AST 22
ALT 21
Alkaline Phosphatase 75
Vital Signs:
Vital Signs
Temp Pulse Resp BP Pulse Ox
98.2 F 66 17 158/74 97
04/13/25 10:55 04/13/25 10:55 04/13/25 10:55 04/13/25 10:55 04/13/25 10:55
I&O
04/12/25 04/13/25 04/14/25
06:59 06:59 06:59
Intake Total 480 / 480 1200 / 1200
Output Total 325 / 325
Balance 155 / 155 1200 / 1200
Physical Exam
-
General: Well Developed and No Apparent Distress
HEENT: Normocephalic, Atraumatic and Moist Mucous Membranes
Respiratory: Clear to Auscultation
Cardiac: Regular Rhythm and Bradycardic; Negative Murmur, Rub or Gallop
GI: Soft, Nontender, Nondistended and Normal Bowel Sounds; Negative Organomegaly
Rectal: Deferred by Provider
Musculoskeletal: No Clubbing, No Cyanosis and No Edema
Skin: Negative Rash
Neuro: Awake, No Motor Deficits and Nonfocal/Grossly Intact
Psych: Calm and Apparent Dementia
--- NOTE | 2025-04-13 11:41 | W.DCSUMMARY ---
Discharge Summary
Discharge Data
Date of Admission: 04/11/25
Date of Discharge: 04/13/25
-
Pending Results: No
Hospital Course
80-year-old male past medical history of diabetes mellitus, hyperlipidemia, dementia, GERD, prostate cancer with presenting with falls and abdominal pain. Patient had falls at home. Today he fell backwards while trying to put on shorts and hit his
back and neck. In the ER patient underwent extensive imaging which included CT of the head which was negative for acute pathology. CT of the cervical spine was negative for fracture. MRI abdomen was negative for acute posttraumatic abnormality.
Patient was started on IV fluids overnight. Thoracic and lumbar x-ray was performed. Patient was eval by physical and Occupational Therapy. Patient was positive for orthostatics however asymptomatic. Patient with supine hypertension. Patient
denied any complaints of feeling lightheaded and dizziness. Patient was also found to be bradycardic which was deemed secondary to donepezil which was discontinued. Patient was tolerating diet. Patient was ambulating in the room without any
difficulty. TSH and cortisol level found to be normal. Falls could have been related due to orthostatics likely second autonomic dysfunction. PT and OT recommended home VN. All this was discussed with patient and spouse at bedside in detail.
Discharge Plan
-
Patient Disposition: Home with Home Care
Discharge Diagnosis/Procedures: Frequent falls likely secondary to orthostatic secondary to autonomic dysfunction
Elevated lipase resolved
Sinus bradycardia likely secondary to donepezil
Condition: Fair
Diet: Diabetic, Carb Controlled
Activity: With assistance and As tolerated
Driving Restrictions: Not until seen by your Dr
Other Services: VN
Referrals:
Minor Lu CRNP [Family Provider, Family Practice] - in less than 1 week
Additional Discharge Medication Instructions: Donepezil was discontinued.
Prescriptions:
Continued
atorvastatin [Lipitor] 10 MG tablet
10 mg PO QPM
tamsulosin [Flomax] 0.4 MG capsule
0.4 mg PO HS
Januvia 100 MG tablet
100 mg PO DAILY
famotidine [Pepcid] 20 mg Tablet
20 mg PO HS
acetaminophen 325 mg tablet
650 mg PO Q6HPRN PRN (Reason: mild pain) Qty: 14 0RF
citalopram [Celexa] 20 mg Tablet
20 mg PO DAILY
memantine 10 mg Tablet
10 mg PO BID
mirabegron [Myrbetriq] 50 mg Tablet Extended Release 24 Hr
50 mg PO DAILY
Discontinued
donepezil 23 mg Tablet
23 mg PO HS
Discharge Orders:
Discharge Patient (As Directed); Ordered 04/13/25
Ordered By: Sai Bender
Discharge Date and Time
Discharge Date/Time: 04/13/25 13:40
Print Language: URUGUAYAN
[2025-04-13 11:50] LABS: Glucose - Point of Care 102 mg/dl (70-99)
--- NOTE | 2025-04-13 12:19 | CM ---
MD entered order for discharge.
Pt given [facility] letter explained on chart.
Offered VN requested [facility] . Referral placed in care port.
will drive him home.
PLAn Home with [facility]
== END 2025-04-13 13:40 | disposition home health service (06) ==
LOC: 3 WEST ACU 19:25
PROVIDERS: Physician Assistant; Physician Assistant Medical; ADMITTING PHYSICIAN Hospitalist; ATTENDING PHYSICIAN Hospitalist; EMERGENCY PHYSICIAN Student in an Organized Health Care Education/Training Program; FAMILY PHYSICIAN Nurse Practitioner Family
DX: R29.6 Repeated falls (principal); R74.8 Abnormal levels of other serum enzymes; R00.1 Bradycardia, unspecified; E11.9 Type 2 diabetes mellitus without complications; F03.90 Unspecified dementia, unspecified severity, without behavioral disturbance, psychotic disturbance, mood disturbance, and anxiety; E78.00 Pure hypercholesterolemia, unspecified; I10 Essential (primary) hypertension; M54.9 Dorsalgia, unspecified; W18.30XA Fall on same level, unspecified, initial encounter; K85.90 Acute pancreatitis without necrosis or infection, unspecified; K59.00 Constipation, unspecified; Z79.899 Other long term (current) drug therapy
CPT/HCPCS: 70450; 72072; 72100; 72125; 74177; 80048; 80053; 81003; 81015; 82533; 82962; 83036; 83690; 83735; 84443; 85025; 85027; 93005; 97163; 97167; 99285; G0378; Q9967